=== PATIENT | male | born 1995 | race Two or more races ===

== ENCOUNTER 2022-10-24 12:15 | Emergency (ER) | payer OTHER ==
[~2022-10-24] VITALS: Ht 175.3 cm; Wt 90.9 kg
[2022-10-24] MEDS ORDERED: ceFAZolin/D5W- 1GM premix 50 ML IV ONE (12:45)
[2022-10-24] MEDS ORDERED: TETanus/Pertussis (Acell)/Diphther VAC/PF (Tdap-Adult) 0.5ml syringe IMVAC ONE (12:45)
[2022-10-24] MEDS ORDERED: oxyCODONE/APAP 10/325mg tablet PO ONE (12:45)
[2022-10-24] MEDS ORDERED: LIDOcaine 1% W/epiNEPHrine 1:100,000 20ml vial SQ ONE (13:20)
[2022-10-24] MEDS ORDERED: SULF1TAB49 PO (14:21)
[2022-10-24 15:08] VITALS: BP 121/79
== END 2022-10-24 15:11 | disposition home or self-care (01) ==
LOC: ER 12:16
DX: S60.552A Superficial foreign body of left hand, initial encounter (principal); X58.XXXA Exposure to other specified factors, initial encounter; Y93.89 Activity, other specified; Y92.89 Other specified places as the place of occurrence of the external cause; Y99.8 Other external cause status
CPT/HCPCS: 73090; 73110; 90471; 90715; 96365; 99284; J0690; A6258